=== PATIENT | male | born 1965 | race Caucasian/White ===

== ENCOUNTER 2020-08-14 13:21 | Emergency (ER) | payer MEDICAID, OTHER, SELFPAY ==
[2020-08-14] MEDS ORDERED: fentaNYL 100 MCG/2 ML INJECTION (J3010) IV ONE ×4 (13:30→16:05)
[2020-08-14] MEDS ORDERED: NS 1,000 ML IV ONE (13:30)
[2020-08-14] MEDS ORDERED: BOOSTRIX/ADACEL VACCINE (DIPHTH/PERTUSS/ACELL/TETANUS) 0.5ML SYR IM ONE (13:50)
[2020-08-14 13:56] LABS: BASO % 0.4 % (0.0-1.0); EOS # 0.1 10^3/uL (0.0-0.5); HEMATOCRIT 43.3 % (42.0-52.0); HEMOGLOBIN 14.9 g/dl (13.5-17.5); LYMPH # 2.5 10^3/uL (1.5-5.0); LYMPH % 29.8 % (24.0-44.0); MEAN CORPUSCULAR HGB CONC 34.4 g/dl (32.0-36.5); MEAN CORPUSCULAR VOLUME 87.3 fl (80.0-96.0); MONO # 0.7 10^3/uL (0.0-0.8); MONO % 8.5 % (2.0-8.0); NEUTROPHILS # 4.9 10^3/uL (1.5-8.5); NEUTROPHILS % 59.9 % (36.0-66.0); PLATELET COUNT, AUTOMATED 198 10^3/uL (150-450); RED BLOOD COUNT 4.96 10^6/uL (4.30-6.10); WHITE BLOOD COUNT 8.2 10^3/uL (4.0-10.0)
[2020-08-14] MEDS ORDERED: ISOVUE-370 76% 100ML VIAL As Ordered ONE (13:56)
--- NOTE | 2020-08-14 14:12 | REP ---
INDICATION: trauma COMPARISON: None. TECHNIQUE: AP and cross-table lateral views. FINDINGS: Comminuted intra-articular fracture of the proximal tibia. Injury to the proximal fibula cannot definitively be excluded. The visualized distal femur and patella appear intact. IMPRESSION: Comminuted intra-articular fracture of the proximal tibia. <Electronically signed by Darell Acharya > 08/14/20 [id number]
[2020-08-14 14:15] LABS: INR 0.97; PROTHROMBIN TIME 13.1 SECONDS (12.5-14.3)
[2020-08-14 14:16] LABS: PARTIAL THROMBOPLASTIN TIME 26.4 SECONDS (24.2-38.5)
[2020-08-14 14:21] LABS: ALBUMIN 4.1 GM/DL (3.2-5.2); ALT/SGPT 21 U/L (12-78); AMYLASE 65 U/L (25-115); BILIRUBIN,DIRECT 0.3 MG/DL (0.0-0.2); BLOOD UREA NITROGEN 14 MG/DL (7-18); CALCIUM LEVEL 8.7 MG/DL (8.5-10.1); CARBON DIOXIDE LEVEL 25 MEQ/L (21-32); CHLORIDE LEVEL 107 MEQ/L (98-107); CK-MB VALUE MASS < 1.0 NG/ML (<3.6); CPK CREATINE PHOSPHOKINASE 200 U/L (39-308); CREATININE FOR GFR 1.03 MG/DL (0.70-1.30); ETHYL ALCOHOL (ETHANOL) 0.003 % (0.000-0.010); GLOMERULAR FILTRATION RATE > 60.0 (>56); GLUCOSE, FASTING 97 MG/DL (70-100); LIPASE 145 U/L (73-393); POTASSIUM SERUM 3.7 MEQ/L (3.5-5.1); SODIUM LEVEL 138 MEQ/L (136-145); TOTAL PROTEIN 7.6 GM/DL (6.4-8.2); TROPONIN I < 0.02 NG/ML (< 0.10)
--- NOTE | 2020-08-14 14:33 | REP ---
INDICATION: Trauma COMPARISON: None. TECHNIQUE: Axial noncontrast images from the skull base to the vertex with coronal reformations. This CT examination was performed using the following dose reduction techniques: Automated exposure control, adjustment of mA and/or kv according to the patient's size, and use of iterative reconstruction technique. FINDINGS: The ventricles, sulci, and cisterns are normal in position and appearance. Danielson-white differentiation is maintained. No acute intracranial hemorrhage, mass/mass effect, pathology or trauma/injury. No evidence for acute infarction. No extra-axial fluid collection. Calvarium is intact. Paranasal sinuses and mastoid air cells are clear. IMPRESSION: Normal noncontrast head CT. No evidence for acute intracranial pathology or trauma/injury. <Electronically signed by Darell Acharya > 08/14/20 [id number]
[2020-08-14] MEDS ORDERED: ONDANSETRON 4MG/2ML VIAL IV ONE (14:35)
--- NOTE | 2020-08-14 14:44 | REP ---
INDICATION: Trauma COMPARISON: None TECHNIQUE: Axial contrast enhanced images from the thoracic inlet to the upper abdomen with coronal and sagittal reformations using 100 ml Isovue 370 intravenous contrast material. This CT examination was performed using the following dose reduction techniques: Automated exposure control, adjustment of mA and/or kv according to the patient's size, and use of iterative reconstruction technique. FINDINGS: The bilateral lung schultz are well aerated and clear. No consolidation/contusion, effusion, or pneumothorax. Mediastinum is normal and without evidence for mediastinal injury thoracic aorta, pulmonary vasculature, and heart/pericardium are within normal limits. No significant adenopathy. Surrounding musculoskeletal structures appear intact and without obvious acute injury. IMPRESSION: Normal contrast-enhanced chest CT. No acute mediastinal or pleuroparenchymal process. No evidence for intrathoracic trauma/injury. <Electronically signed by Darell Acharya > 08/14/20 [id number]
--- NOTE | 2020-08-14 14:47 | REP ---
INDICATION: Trauma. COMPARISON: None TECHNIQUE: Axial contrast-enhanced images from the lung bases to the pubic symphysis using 100 cc Isovue 370 intravenous contrast material. Coronal and sagittal reformations obtained. This CT examination was performed using the following dose reduction techniques: Automated exposure control, adjustment of mA and/or kv according to the patient's size, and the use of iterative reconstruction technique. FINDINGS: Examination is limited due to motion artifact. No evidence for solid organ injury appreciated. Liver, spleen, pancreas, gallbladder, bilateral adrenal glands and kidneys are grossly normal. The enteric system including stomach, small, and large bowel appears normal. No evidence for obstruction or acute inflammatory process. Normal terminal ileum and cecum are identified in the right lower quadrant. Pelvis demonstrates normal bladder and age-appropriate prostate/seminal vesicles. No ascites. No free air. No intraperitoneal or retroperitoneal adenopathy. Abdominal aorta and vasculature appear normal and without vascular injury. Musculoskeletal structures are intact and without acute osseous abnormality. IMPRESSION: No acute abdominopelvic pathology or trauma/injury appreciated. <Electronically signed by Darell Acharya > 08/14/20 [id number]
--- NOTE | 2020-08-14 14:59 | REP ---
INDICATION: Trauma COMPARISON: None. TECHNIQUE: Axial noncontrast images from the skull base to the thoracic inlet with coronal and sagittal re-formations This CT examination was performed using the following dose reduction techniques: Automated exposure control, adjustment of mA and/or kv according to the patient's size, and use of iterative reconstruction technique. FINDINGS: Chronic levoconvex curvature along with advanced multilevel degenerative disc osteophyte complexes are appreciated. No obvious acute fracture/compression injury or subluxation is identified. Spinal canal is patent. Posterior elements and spinous processes appear intact. Paravertebral soft tissues are within normal limits. IMPRESSION: Evaluation is limited by levoconvex curvature and advanced degenerative changes. No obvious acute fracture/compression injury or subluxation is appreciated. <Electronically signed by Darell Acharya > 08/14/20 [id number]
--- NOTE | 2020-08-14 15:08 | REP ---
INDICATION: trauma with runoff to left leg please. COMPARISON: None. TECHNIQUE: Axial contrast-enhanced images of the left lower extremity using angiographic technique with coronal and sagittal reformations and MIP reconstructions. FINDINGS: Arterial vasculature to the left lower extremity from the distal aorta through the pelvis to the ankle/foot is normal. No evidence for arterial vascular trauma is appreciated. No evidence for extravasation. No dissection or pseudoaneurysm. Small amount of enhancement is identified within the common femoral and superficial femoral veins which is a nonspecific finding and may be secondary to image acquisition timing. The soft tissue structures are grossly normal through the left hemipelvis to the ankle. However, known comminuted fracture of the proximal tibia and possible subtle fracture of the adjacent proximal fibular head is appreciated with associated joint effusion and posttraumatic inflammatory changes surrounding the knee. IMPRESSION: Arterial vasculature from the distal aorta through the hemipelvis and left lower extremity are intact and normal. No evidence for arterial vascular injury. Known comminuted fracture of the proximal tibia and subtle fracture of the proximal fibular head. <Electronically signed by Darell Acharya > 08/14/20 [id number]
[2020-08-14] MEDS ORDERED: NS 1,000 ML IV SCH (15:40)
[2020-08-14 16:02] VITALS: BP 129/83
== END 2020-08-14 16:17 | disposition short-term general hospital (02) ==
LOC: EDBD 13:21 → M ED 13:21
DX: S82.252A Displaced comminuted fracture of shaft of left tibia, initial encounter for closed fracture (principal); V28.4XXA Motorcycle driver injured in noncollision transport accident in traffic accident, initial encounter; Y92.9 Unspecified place or not applicable; Y93.9 Activity, unspecified; Y99.9 Unspecified external cause status
CPT/HCPCS: 70450; 71260; 72125; 73560; 73706; 74177; 80047; 80048; 80076; 82077; 82150; 82550; 82553; 83690; 85025; 85610; 85730; 86850; 86900; 86901; 90471; 90715; 93041; 94760; 96361; 96374; 96375; 99285; J2405; J3010; Q9967